=== PATIENT | female | born 1980 | race African-American/Black ===

== ENCOUNTER 2017-01-04 18:56 | Emergency (ER) | payer MEDICAID ==
--- NOTE | 2017-01-05 19:38 | ER ---
ADMIT: 01/04/2017 RM/LOC: ER [facility] MR#: [id number] [facility] [address] [place], [place] [id number] JENIFER PITTMAN [address] [address] Emergency Room Report SEX: F AGE: 36 : 1980 DATE: 01/04/2017 The patient is a 36-year-old, [place] female, 7, para 6-0-0-6, last menstrual period November 10, complains of typical vomiting associated with early and epigastric pain. Denies any fevers, chills, diarrhea, hematemesis, or dysuria. Exam remarkable for nontoxic, afebrile, very small female less than 50 kilos, slightly tender to palpation epigastrium. Hemoglobin 11.8, lactic 1.2, potassium 3.2, calcium 8.4, lipase 125, quantitative hCG 167,309. UA; 2 wbc's, 2 rbc's, trace leukocyte esterase, 3+ ketones. The patient was given a liter of saline, Zofran 8 mg IV push, Reglan 5 mg IV push, oral challenge, tolerated well. Home with Zofran 8 mg t.i.d. p.r.n. #30, Reglan 5 mg q.i.d. p.r.n. #20. Follow up with Dr. Florin Ortega this week. Sudeep Samuel MD/ [facility] JOB #: [id number] CC: Roland William MD, Attending Physician Min Saab MD, Family Physician Florin Ortega MD
== END 2017-01-04 21:08 | disposition home or self-care (01) ==
LOC: ER 18:56
DX: O21.0 Mild hyperemesis gravidarum (principal); Z3A.10 10 weeks gestation of pregnancy